=== PATIENT | male | born 1980 | race Caucasian/White ===

== ENCOUNTER 2018-09-10 12:37 | Emergency (ER) | payer MEDICARE, MEDICAID, SELFPAY ==
[2018-09-10 12:55] VITALS: BP 124/85; PULSE 85; RESP 16; TEMP 37.1; O2SAT 100; BMI 25.7
--- NOTE | 2018-09-10 13:10 | ED_ITS ---
HPI - Psych <Vanita Reyes DO - Last Filed: 09/11/18 07:06> General Chief Complaint: Psychiatric Symptoms Stated Complaint: MIRLANDE Time Seen by Provider: 09/10/18 12:49 Source: patient, family and police Mode of arrival: ambulatory History of Present Illness HPI Narrative: Patient is a 37-year-old male who has history of schizophrenia brought in by police after a violent outburst in [facility]. He apparently was admitted and treated at [facility] for 1 week. His according to his mom he has not been taking his medications and drinking alcohol. She has already texted his out patient [facility] provider was actually here in the emergency department. He does know him well. Patient adamantly denies any suicidal or homicidal ideations. He does say that he was hearing a voice of a child having sex while in the back of the police car. Related Data Home Medications Medication Instructions Recorded Confirmed benztropine 09/10/18 09/10/18 divalproex 09/10/18 09/10/18 haloperidol 09/10/18 09/10/18 Allergies Allergy/AdvReac Type Severity Reaction Status Date / Time No Known Drug Allergies Allergy Verified 09/10/18 13:53 Review of Systems <DO Arleth Sharma Last Filed: 09/11/18 07:06> Review of Systems GENERAL: Denies chills,fever HEENT: Denies throat pain RESPIRATORY: Denies dyspnea, cough, wheezing CARDIOVASCULAR: Denies chest pain, palpitations GASTROINTESTINAL: Denies nausea, vomiting MUSCULOSKELETAL: Denies extremity pain, injury SKIN: No rash, no laceration, no pruritus NEUROLOGIC: Denies weakness, dizziness, headache, numbness PSYCH: See HPI 8 point review of systems is negative except for those stated above and HPI Exam <Vanita Reyes DO - Last Filed: 09/11/18 07:06> Initial Vital Signs Initial Vital Signs: Vital Signs Temperature 98.7 F 09/10/18 12:55 Pulse Rate 85 09/10/18 12:55 Respiratory Rate 16 09/10/18 12:55 Blood Pressure 124/85 09/10/18 12:55 Pulse Oximetry 100 09/10/18 12:55 GENERAL: Alert and oriented cooperative HEENT: Head atraumatic,EOMI, pupils reactive CARDIOVASCULAR: Regular rate and rhythm without murmurs, rubs or gallops. RESPIRATORY: Breath sounds equal bilaterally, no wheezes rales or rhonchi. EXTREMITIES: Normal range of motion, no clubbing or edema. Neurovascularly intact NEUROLOGICAL: Alert and oriented x4.Normal gait and speech. SKIN: Warm, dry, no laceration, no petechiae, no rashes or lesions. <Navya Noe MD - Last Filed: 09/11/18 02:37> Initial Vital Signs Initial Vital Signs: Vital Signs Temperature 98.7 F 09/10/18 12:55 Pulse Rate 85 09/10/18 12:55 Respiratory Rate 16 09/10/18 12:55 Blood Pressure 124/85 09/10/18 12:55 Pulse Oximetry 100 09/10/18 12:55 Course <Vanita Reyes DO - Last Filed: 09/11/18 07:06> Orders Ordered: Discontinued Medications Haloperidol (Haldol) 5 mg IM NOW ONE Stop: 09/10/18 15:26 Last Admin: 09/10/18 15:37 Dose: Olanzapine (Zyprexa) 10 mg IM NOW ONE Stop: 09/10/18 15:28 Last Admin: 09/10/18 16:05 Dose: 10 mg Vital Signs - 8 hr 09/10/18 19:25 09/10/18 21:37 Pulse Rate 79 63 Respiratory Rate 15 12 Blood Pressure 129/68 Blood Pressure [Left Arm] 123/70 Pulse Oximetry 99 100 Mental Status Exam Patient Appearance: Well Groomed Level of Consciousness: Alert and Awake Mood Description: Angry and Anxious Ability to Follow Directions: Fair Hallucination Type: Auditory Physical Status Respirations: Unlabored Circulation: Moves all extremities Assessment of Situation Behavior necessitating restraint: Agitated Restraint risks explained to patient: Yes Comments Additional Comments: Patient screaming and yelling. He does not appear to be throwing things but does have quite violent outburst. <Navya Noe MD - Last Filed: 09/11/18 02:37> Orders Ordered: Discontinued Medications Haloperidol (Haldol) 5 mg IM NOW ONE Stop: 09/10/18 15:26 Last Admin: 09/10/18 15:37 Dose: Olanzapine (Zyprexa) 10 mg IM NOW ONE Stop: 09/10/18 15:28 Last Admin: 09/10/18 16:05 Dose: 10 mg Vital Signs - 8 hr 09/10/18 19:25 09/10/18 21:37 Pulse Rate 79 63 Respiratory Rate 15 12 Blood Pressure 129/68 Blood Pressure [Left Arm] 123/70 Pulse Oximetry 99 100 MDM - Psych <Vanita Reyes DO - Last Filed: 09/11/18 07:06> Lab Data Attestation: I reviewed the patient's lab results. Result diagrams: 09/10/18 13:30 09/10/18 13:30 Lab Results 09/10/18 09/10/18 09/10/18 Range/Units 12:50 12:50 13:30 WBC 7.9 (4.5-11.0) X10^3/uL RBC 5.01 (4.5-5.9) X10^6/uL Hgb 15.5 (13.5-17.5) g/dL Hct 44.8 (41-53) % MCV 89.4 (80-100) fL MCH 30.9 (26-34) PG MCHC 34.6 (30-36) % RDW 14.3 (11.6-14.8) % Plt Count 158 (150-400) X10^3/uL Neut % (Auto) 68.7 (50-75) % Lymph % (Auto) 19.6 L (25-40) % [place] % (Auto) 8.4 (3-14) % Eos % (Auto) 1.3 L (2-4) % Baso % (Auto) 2.0 (0-2) % Neut # (Auto) 5500 (1610-2175) /uL Sodium (137-145) mmol/L Potassium (3.4-5.1) mmol/L Chloride (98-107) mmol/L Carbon Dioxide (22-32) mmol/L BUN (9-20) mg/dL Creatinine (0.66-1.25) mg/dL Estimated GFR (>60) mL/min BUN/Creatinine Ratio (6-22) Glucose (70-100) mg/dL Calcium (8.4-10.2) mg/dL Total Bilirubin (0.2-1.3) mg/dL AST (17-59) IU/L ALT (21-72) IU/L Alkaline Phosphatase (38-126) U/L Total Protein (6.3-8.2) g/dL Albumin (3.5-5.0) g/dL Globulin (1.7-4.1) g/dL Albumin/Globulin Ratio (1.0-2.8) TSH (0.47-4.68) uIU/mL Urine Color Yellow Urine Appearance Clear Urine pH 6.5 (4.5-8.0) Ur Specific [place] <=1.005 (1.000-1.035) Urine Protein Negative (Negative) Urine Glucose (UA) Negative (Normal) g/dL Urine Ketones Negative (NEGATIVE) Urine Occult Blood Trace-lysed (Negative) Urine Nitrate Negative (Negative) Urine Bilirubin Negative (NEGATIVE) Urine Urobilinogen 0.2 (0.2) E.U./dL Ur Leukocyte Esterase Negative (NEGATIVE) Urine Opiates Screen Negative (Negative) Ur Oxycodone Screen Negative (Negative) Urine Methadone Screen Negative (Negative) Ur Barbiturates Screen Negative (Negative) U Tricyclic Antidepress Negative (Negative) Ur Phencyclidine Scrn Negative (Negative) Ur Amphetamines Screen Negative (Negative) U Methamphetamines Scrn Negative (Negative) Ur MDMA Scrn (Ecstasy) Negative (Negative) U Benzodiazepines Scrn Negative (Negative) Urine Cocaine Screen Negative (Negative) U Marijuana (THC) Screen Negative (Negative) Ethyl Alcohol mg/dL 09/10/18 09/10/18 Range/Units 13:30 13:30 WBC (4.5-11.0) X10^3/uL RBC (4.5-5.9) X10^6/uL Hgb (13.5-17.5) g/dL Hct (41-53) % MCV (80-100) fL MCH (26-34) PG MCHC (30-36) % RDW (11.6-14.8) % Plt Count (150-400) X10^3/uL Neut % (Auto) (50-75) % Lymph % (Auto) (25-40) % [place] % (Auto) (3-14) % Eos % (Auto) (2-4) % Baso % (Auto) (0-2) % Neut # (Auto) (0414-1075) /uL Sodium 135 L (137-145) mmol/L Potassium 4.5 (3.4-5.1) mmol/L Chloride 95 L (98-107) mmol/L Carbon Dioxide 28 (22-32) mmol/L BUN 6 L (9-20) mg/dL Creatinine 0.70 (0.66-1.25) mg/dL Estimated GFR > 60.0 (>60) mL/min BUN/Creatinine Ratio 8.6 (6-22) Glucose 102 H (70-100) mg/dL Calcium 9.3 (8.4-10.2) mg/dL Total Bilirubin 0.7 (0.2-1.3) mg/dL AST 34 (17-59) IU/L ALT 45 (21-72) IU/L Alkaline Phosphatase 63 (38-126) U/L Total Protein 7.7 (6.3-8.2) g/dL Albumin 4.8 (3.5-5.0) g/dL Globulin 2.9 (1.7-4.1) g/dL Albumin/Globulin Ratio 1.7 (1.0-2.8) TSH 4.03 (0.47-4.68) uIU/mL Urine Color Urine Appearance Urine pH (4.5-8.0) Ur Specific [place] (1.000-1.035) Urine Protein (Negative) Urine Glucose (UA) (Normal) g/dL Urine Ketones (NEGATIVE) Urine Occult Blood (Negative) Urine Nitrate (Negative) Urine Bilirubin (NEGATIVE) Urine Urobilinogen (0.2) E.U./dL Ur Leukocyte Esterase (NEGATIVE) Urine Opiates Screen (Negative) Ur Oxycodone Screen (Negative) Urine Methadone Screen (Negative) Ur Barbiturates Screen (Negative) U Tricyclic Antidepress (Negative) Ur Phencyclidine Scrn (Negative) Ur Amphetamines Screen (Negative) U Methamphetamines Scrn (Negative) Ur MDMA Scrn (Ecstasy) (Negative) U Benzodiazepines Scrn (Negative) Urine Cocaine Screen (Negative) U Marijuana (THC) Screen (Negative) Ethyl Alcohol < 10 mg/dL MDM Narrative Medical decision making narrative: I called and spoke with patient's mom. She has contacted patient's own [facility] out reach his person. He is actually in the ED to evaluate patient. Initially thought patient did not meet involuntary criteria and he was not willing to go to hospital. However over time patient escalated. This was seen by the [facility] provider. It was determined the patient is now involuntary. He is seen in the room screaming yelling and and having quite angry outbursts. He is not violent towards others. However because of his angry outbursts he is placed in restraints. He was agreeable to medication. [facility] here to evaluate patient. Looking at beds currently. Patient signed out to Dr. Noe for further treatment if needed but likely a going to psych facility <Navya Noe MD - Last Filed: 09/11/18 02:37> Medical Records Attestation: I reviewed the patient's medical records. Lab Data Attestation: I reviewed the patient's lab results. Lab Results 09/10/18 09/10/18 09/10/18 Range/Units 12:50 12:50 13:30 WBC 7.9 (4.5-11.0) X10^3/uL RBC 5.01 (4.5-5.9) X10^6/uL Hgb 15.5 (13.5-17.5) g/dL Hct 44.8 (41-53) % MCV 89.4 (80-100) fL MCH 30.9 (26-34) PG MCHC 34.6 (30-36) % RDW 14.3 (11.6-14.8) % Plt Count 158 (150-400) X10^3/uL Neut % (Auto) 68.7 (50-75) % Lymph % (Auto) 19.6 L (25-40) % [place] % (Auto) 8.4 (3-14) % Eos % (Auto) 1.3 L (2-4) % Baso % (Auto) 2.0 (0-2) % Neut # (Auto) 5500 (3289-7927) /uL Sodium (137-145) mmol/L Potassium (3.4-5.1) mmol/L Chloride (98-107) mmol/L Carbon Dioxide (22-32) mmol/L BUN (9-20) mg/dL Creatinine (0.66-1.25) mg/dL Estimated GFR (>60) mL/min BUN/Creatinine Ratio (6-22) Glucose (70-100) mg/dL Calcium (8.4-10.2) mg/dL Total Bilirubin (0.2-1.3) mg/dL AST (17-59) IU/L ALT (21-72) IU/L Alkaline Phosphatase (38-126) U/L Total Protein (6.3-8.2) g/dL Albumin (3.5-5.0) g/dL Globulin (1.7-4.1) g/dL Albumin/Globulin Ratio (1.0-2.8) TSH (0.47-4.68) uIU/mL Urine Color Yellow Urine Appearance Clear Urine pH 6.5 (4.5-8.0) Ur Specific [place] <=1.005 (1.000-1.035) Urine Protein Negative (Negative) Urine Glucose (UA) Negative (Normal) g/dL Urine Ketones Negative (NEGATIVE) Urine Occult Blood Trace-lysed (Negative) Urine Nitrate Negative (Negative) Urine Bilirubin Negative (NEGATIVE) Urine Urobilinogen 0.2 (0.2) E.U./dL Ur Leukocyte Esterase Negative (NEGATIVE) Urine Opiates Screen Negative (Negative) Ur Oxycodone Screen Negative (Negative) Urine Methadone Screen Negative (Negative) Ur Barbiturates Screen Negative (Negative) U Tricyclic Antidepress Negative (Negative) Ur Phencyclidine Scrn Negative (Negative) Ur Amphetamines Screen Negative (Negative) U Methamphetamines Scrn Negative (Negative) Ur MDMA Scrn (Ecstasy) Negative (Negative) U Benzodiazepines Scrn Negative (Negative) Urine Cocaine Screen Negative (Negative) U Marijuana (THC) Screen Negative (Negative) Ethyl Alcohol mg/dL 09/10/18 09/10/18 Range/Units 13:30 13:30 WBC (4.5-11.0) X10^3/uL RBC (4.5-5.9) X10^6/uL Hgb (13.5-17.5) g/dL Hct (41-53) % MCV (80-100) fL MCH (26-34) PG MCHC (30-36) % RDW (11.6-14.8) % Plt Count (150-400) X10^3/uL Neut % (Auto) (50-75) % Lymph % (Auto) (25-40) % [place] % (Auto) (3-14) % Eos % (Auto) (2-4) % Baso % (Auto) (0-2) % Neut # (Auto) (3208-0149) /uL Sodium 135 L (137-145) mmol/L Potassium 4.5 (3.4-5.1) mmol/L Chloride 95 L (98-107) mmol/L Carbon Dioxide 28 (22-32) mmol/L BUN 6 L (9-20) mg/dL Creatinine 0.70 (0.66-1.25) mg/dL Estimated GFR > 60.0 (>60) mL/min BUN/Creatinine Ratio 8.6 (6-22) Glucose 102 H (70-100) mg/dL Calcium 9.3 (8.4-10.2) mg/dL Total Bilirubin 0.7 (0.2-1.3) mg/dL AST 34 (17-59) IU/L ALT 45 (21-72) IU/L Alkaline Phosphatase 63 (38-126) U/L Total Protein 7.7 (6.3-8.2) g/dL Albumin 4.8 (3.5-5.0) g/dL Globulin 2.9 (1.7-4.1) g/dL Albumin/Globulin Ratio 1.7 (1.0-2.8) TSH 4.03 (0.47-4.68) uIU/mL Urine Color Urine Appearance Urine pH (4.5-8.0) Ur Specific [place] (1.000-1.035) Urine Protein (Negative) Urine Glucose (UA) (Normal) g/dL Urine Ketones (NEGATIVE) Urine Occult Blood (Negative) Urine Nitrate (Negative) Urine Bilirubin (NEGATIVE) Urine Urobilinogen (0.2) E.U./dL Ur Leukocyte Esterase (NEGATIVE) Urine Opiates Screen (Negative) Ur Oxycodone Screen (Negative) Urine Methadone Screen (Negative) Ur Barbiturates Screen (Negative) U Tricyclic Antidepress (Negative) Ur Phencyclidine Scrn (Negative) Ur Amphetamines Screen (Negative) U Methamphetamines Scrn (Negative) Ur MDMA Scrn (Ecstasy) (Negative) U Benzodiazepines Scrn (Negative) Urine Cocaine Screen (Negative) U Marijuana (THC) Screen (Negative) Ethyl Alcohol < 10 mg/dL MDM Narrative Medical decision making narrative: [place] note: Patient was signed out to me by Dr. Reyes pending final mental health disposition and potential transfer to psychiatric facility. Mental health clinician did report the patient was accepted in transfer to [facility]. He was transferred via ambulance with no further incident in the emergency department. Discharge Plan Departure Patient Disposition: Xfer Psychiatric Hosp Clinical Impression: Acute psychosis Discharge Date/Time: 09/10/18 21:39 Interventions: ED Discharge Assessment Last Done: 09/10/18 21:37
[2018-09-10 13:38] LABS: Urine Amphetamines Negative (Negative); Urine Barbiturates Negative (Negative); Urine Benzodiazepines Negative (Negative); Urine Cocaine Negative (Negative); Urine MDMA Negative (Negative); Urine Methadone Negative (Negative); Urine Methamphetamines Negative (Negative); Urine Morphine/Opi cutoff 2000 Negative (Negative); Urine Oxycodone Negative (Negative); Urine Phencyclidine Negative (Negative); Urine Tetrahydrocannabinol Negative (Negative); Urine Tricyclic Antidepressant Negative (Negative)
[2018-09-10 13:41] LABS: Add Manual Diff / Slide Review NO; Eosinophils Percent Auto 1.3 % (2-4); Hematocrit 44.8 % (41-53); Hemoglobin 15.5 g/dL (13.5-17.5); Lymphocytes Percent Auto 19.6 % (25-40); Mean Corpuscular HGB Conc 34.6 % (30-36); Mean Corpuscular Hemoglobin 30.9 PG (26-34); Mean Corpuscular Volume 89.4 fL (80-100); Monocytes Percent Auto 8.4 % (3-14); Neutrophils Absolute Auto 5500 /uL (3000-5900); Neutrophils Percent Auto 68.7 % (50-75); Platelet Count 158 X10^3/uL (150-400); Red Blood Cell Count 5.01 X10^6/uL (4.5-5.9); Red Cell Distribution Width 14.3 % (11.6-14.8); White Blood Cell Count 7.9 X10^3/uL (4.5-11.0)
--- NOTE | 2018-09-10 13:50 | PC.NURSE ---
Patient asked for my counselor that was just here, Jsohua. I let him know I would ask if Joshua could come back to answer some questions. Nurse is aware, I could not find Joshua.
--- NOTE | 2018-09-10 13:53 | PC.NURSE ---
pt has been yelling, saying fuck that shit, currently talking to himself. Sounds angry and upset
[2018-09-10 13:59] LABS: Alanine Aminotransferase 45 IU/L (21-72); Albumin 4.8 g/dL (3.5-5.0); Albumin Globulin Ratio 1.7 (1.0-2.8); Alkaline Phosphatase 63 U/L (38-126); Aspartate Aminotransferase 34 IU/L (17-59); BUN Creatinine Ratio 8.6 (6-22); Bilirubin Total 0.7 mg/dL (0.2-1.3); Blood Urea Nitrogen 6 mg/dL (9-20); Calcium 9.3 mg/dL (8.4-10.2); Carbon Dioxide 28 mmol/L (22-32); Chloride 95 mmol/L (98-107); Estimated Glomerular Filt Rate > 60.0 mL/min (>60); Ethanol (ETOH) < 10 mg/dL; Globulin 2.9 g/dL (1.7-4.1); Glucose 102 mg/dL (70-100); HEMOLYSIS 17 (0-50); Potassium 4.5 mmol/L (3.4-5.1); Sodium 135 mmol/L (137-145); Total Protein 7.7 g/dL (6.3-8.2)
--- NOTE | 2018-09-10 14:14 | PC.NURSE ---
Pt states he is hearing voices. Pacing around room screaming.
--- NOTE | 2018-09-10 14:42 | PC.NURSE ---
pt pacing around room yelling I hate my life, ALWAYS
[2018-09-10 14:45] LABS: Thyroid Stimulating Hormone 4.03 uIU/mL (0.47-4.68)
--- NOTE | 2018-09-10 15:21 | PC.NURSE ---
Pt screaming at nurse, open the door! I've been here for fucking hours. Pt banging on door, screaming at staff. Asked patient to lower his voice. He continues to scream and bang on the door. Provider notified.
--- NOTE | 2018-09-10 15:23 | PC.NURSE ---
pt is banging on the door screaming fuck you at the staff repeatedly
--- NOTE | 2018-09-10 15:26 | PC.NURSE ---
Pt banging on the door, yelling at staff sayingopen the door repeatedly 1530 pt requesting food, pacing back and forth at door 1533 pt banging on door again, pt took off medical gown, still banging on door, pointing across the room as if pt is seeing someone 1545 pt in bathroom with door shut, staff going to try to get him out 1550 [employer] arrived to assist staff due to pts behavior 1558 pt laying on bed eating sandwich, seems calmer
[2018-09-10] MEDS: OLANZapine 10 MG VIAL IM (16:05)
[2018-09-10 16:28] LABS: Appearance Urine UA CLEAR; Bilirubin Urine UA NEGATIVE (NEGATIVE); Color Urine UA YELLOW; Glucose Urine UA NEGATIVE (Normal); Ketones Urine UA NEGATIVE (NEGATIVE); Leukocyte Esterase Urine UA NEGATIVE (NEGATIVE); Nitrite Urine UA NEGATIVE (Negative); Occult Blood Urine UA TRACE-LYSED (Negative); Protein Urine UA NEGATIVE (Negative); Specific Gravity Urine UA <=1.005 (1.000-1.035); Urobilinogen Urine UA 0.2 E.U./dL (0.2); pH Urine UA 6.5 (4.5-8.0)
--- NOTE | 2018-09-10 16:50 | PC.NURSE ---
Pt has stopped yelling. Requesting for us to open door. Agrees to not attempt to leave or yell. Door is opened with security control room officer standing by. Patient is cooperative and laying on stretcher. States he is feeling a little better.
--- NOTE | 2018-09-10 16:56 | PC.NURSE ---
Patient now resting on bed with blankets.
[2018-09-10 17:14] VITALS: BP 117/67; PULSE 71; RESP 18; O2SAT 99
[2018-09-10 19:25] VITALS: BP 123/70; PULSE 79; RESP 15; O2SAT 99
[2018-09-10 21:37] VITALS: BP 129/68; PULSE 63; RESP 12; O2SAT 100
[2018-09-13 10:23] LABS: Valproic Acid (Depakene) Total < 12.5 mg/L (50.0-100.0)
== END 2018-09-10 21:39 ==
PROVIDERS: Emergency Medicine; Emergency Provider Emergency Medicine
DX: F23 Brief psychotic disorder (principal)
CPT/HCPCS: 80053; 80164; 80305; 80320; 81003; 84443; 85025; 96372; 99283; 99284; S0166

== ENCOUNTER 2019-04-23 18:19 | Emergency (ER) | payer MEDICARE, SELFPAY ==
[2019-04-23 18:20] VITALS: BP 122/70; PULSE 91; RESP 18; TEMP 36.7; O2SAT 99
--- NOTE | 2019-04-23 19:03 | ED_ITS ---
HPI - Psych General Chief Complaint: Psychiatric Symptoms Stated Complaint: HATE Time Seen by Provider: 04/23/19 18:49 Source: patient Mode of arrival: ambulatory Limitations: no limitations History of Present Illness HPI Narrative: 38-year-old male who comes the emergency department under his own recognizance for evaluation because he states that he has a ?medical problem ?he states that he feels like the food that he has been eating and other substances that he has been exposed to her ?poison? he denies any specific symptoms. Somewhat difficult to obtain a history from the patient due to his tangential answers to questions. Related Data Home Medications Medication Instructions Recorded Confirmed benztropine 09/10/18 09/10/18 divalproex 09/10/18 09/10/18 haloperidol 09/10/18 09/10/18 Allergies Allergy/AdvReac Type Severity Reaction Status Date / Time No Known Drug Allergies Allergy Verified 09/10/18 13:53 Review of Systems Constitutional Denies fever(s) and Denies headache(s) ENT Ears, Nose, Mouth, and Throat: Denies headache(s) Cardiovascular Denies chest pain and Denies dyspnea Respiratory Denies dyspnea Gastrointestinal Gastrointestinal: Denies abdominal pain Musculoskeletal Denies myalgias and Denies arthralgias Integumentary/Breasts Denies rash Neurologic Denies headache(s) Psychiatric Denies auditory hallucinations, Denies visual hallucinations, Denies hallucinations, Denies homicidal ideation and Denies suicidal ideation Hematologic/Lymphatic Denies easy bleeding and Denies easy bruising PFSH Medical History Schizophrenia (Acute) Social History Smoking Status: Current every day smoker alcohol intake: current Social History Smoking Status: Current every day smoker alcohol intake: current Exam Initial Vital Signs Initial Vital Signs: Vital Signs Temperature 98.1 F 04/23/19 18:20 Pulse Rate 91 H 04/23/19 18:20 Respiratory Rate 18 04/23/19 18:20 Blood Pressure 122/70 04/23/19 18:20 Pulse Oximetry 99 04/23/19 18:20 Const General: comfortable, well developed, well groomed and No acute distress Orientation: alert, awake, oriented x3, oriented to person, oriented to place and oriented to time Limitations: mental status not altered HENMT Head: normal to inspection and normocephalic Resp Effort & Inspection: normal respiratory effort Auscultation: clear to auscultation bilaterally Cardio Rate: regular rate Rhythm: regular rhythm GI Inspection: non-distended Palpation: soft Skin Lesions: no lesions Rashes: no rashes Neuro General: alert, awake and oriented x3 Speech: other (Pressured speech) Gait: normal gait Motor: muscle tone normal throughout Sensory Exam: no sensory deficits noted Extrem General: normal to inspection and capillary refill normal Psych Appearance: disheveled (Somewhat does show hold) Speech and Movement: agitated, pressured speech, restless and speech not slurred Mood: irritable mood Affect: animated Attitude: cooperative Thought Process: confabulating, flight of ideas and tangential Thought Content: no hallucinations, no homicidality and suicidality Judgment: fair Course Orders Ordered: ED Orders 04/23/19 20:05 Acetaminophen Stat Complete Blood Count AUTO DIFF Stat Comprehensive Metabolic Panel Stat Ethanol (ETOH) Stat Lipase Stat Salicylate Stat 04/23/19 20:18 Urine Drug Screen, Rapid Stat Vital Signs - 8 hr 04/23/19 18:20 Temperature 98.1 F Pulse Rate 91 H Respiratory Rate 18 Blood Pressure 122/70 Pulse Oximetry 99 MDM - Psych Medical Records Attestation: I reviewed the patient's medical records. Lab Data Attestation: I reviewed the patient's lab results. Result diagrams: 04/23/19 20:05 04/23/19 20:05 Lab Results 04/23/19 04/23/19 04/23/19 Range/Units 20:05 20:05 20:05 WBC 6.0 (4.5-11.0) X10^3/uL RBC 4.48 L (4.5-5.9) X10^6/uL Hgb 13.9 (13.5-17.5) g/dL Hct 40.6 L (41-53) % MCV 90.7 (80-100) fL MCH 31.1 (26-34) PG MCHC 34.3 (30-36) % RDW 13.4 (11.6-14.8) % Plt Count 168 (150-400) X10^3/uL Neut % (Auto) 59.4 (50-75) % Lymph % (Auto) 25.7 (25-40) % [place] % (Auto) 10.1 (3-14) % Eos % (Auto) 3.3 (2-4) % Baso % (Auto) 1.5 (0-2) % Neut # (Auto) 3600 (7044-1057) /uL Lymph # (Auto) 1600 (1965-4500) /uL [place] # (Auto) 600 (0-900) /uL Eos # (Auto) 200 (0-450) /uL Baso # (Auto) 100 (0-100) /uL Sodium 143 (137-145) mmol/L Potassium 4.0 (3.4-5.1) mmol/L Chloride 108 H (98-107) mmol/L Carbon Dioxide 27 (22-32) mmol/L BUN 21 H (9-20) mg/dL Creatinine 0.70 (0.66-1.25) mg/dL Estimated GFR > 60.0 (>60) mL/min BUN/Creatinine Ratio 30.0 H (6-22) Glucose 82 (70-100) mg/dL Calcium 9.2 (8.4-10.2) mg/dL Total Bilirubin 0.6 (0.2-1.3) mg/dL AST 19 (17-59) IU/L ALT 19 L (21-72) IU/L Alkaline Phosphatase 79 (38-126) U/L Total Protein 6.8 (6.3-8.2) g/dL Albumin 4.1 (3.5-5.0) g/dL Globulin 2.7 (1.7-4.1) g/dL Albumin/Globulin Ratio 1.5 (1.0-2.8) Lipase 133 (23-300) U/L Salicylates < 1.0 (<20) mg/dL Urine Opiates Screen (Negative) Ur Oxycodone Screen (Negative) Urine Methadone Screen (Negative) Acetaminophen < 10 L (10-30) ug/mL Ur Barbiturates Screen (Negative) U Tricyclic Antidepress (Negative) Ur Phencyclidine Scrn (Negative) Ur Amphetamines Screen (Negative) U Methamphetamines Scrn (Negative) Ur MDMA Scrn (Ecstasy) (Negative) U Benzodiazepines Scrn (Negative) Urine Cocaine Screen (Negative) U Marijuana (THC) Screen (Negative) Ethyl Alcohol < 10 mg/dL 04/23/19 Range/Units 20:18 WBC (4.5-11.0) X10^3/uL RBC (4.5-5.9) X10^6/uL Hgb (13.5-17.5) g/dL Hct (41-53) % MCV (80-100) fL MCH (26-34) PG MCHC (30-36) % RDW (11.6-14.8) % Plt Count (150-400) X10^3/uL Neut % (Auto) (50-75) % Lymph % (Auto) (25-40) % [place] % (Auto) (3-14) % Eos % (Auto) (2-4) % Baso % (Auto) (0-2) % Neut # (Auto) (5972-3471) /uL Lymph # (Auto) (0582-4730) /uL [place] # (Auto) (0-900) /uL Eos # (Auto) (0-450) /uL Baso # (Auto) (0-100) /uL Sodium (137-145) mmol/L Potassium (3.4-5.1) mmol/L Chloride (98-107) mmol/L Carbon Dioxide (22-32) mmol/L BUN (9-20) mg/dL Creatinine (0.66-1.25) mg/dL Estimated GFR (>60) mL/min BUN/Creatinine Ratio (6-22) Glucose (70-100) mg/dL Calcium (8.4-10.2) mg/dL Total Bilirubin (0.2-1.3) mg/dL AST (17-59) IU/L ALT (21-72) IU/L Alkaline Phosphatase (38-126) U/L Total Protein (6.3-8.2) g/dL Albumin (3.5-5.0) g/dL Globulin (1.7-4.1) g/dL Albumin/Globulin Ratio (1.0-2.8) Lipase (23-300) U/L Salicylates (<20) mg/dL Urine Opiates Screen Negative (Negative) Ur Oxycodone Screen Negative (Negative) Urine Methadone Screen Negative (Negative) Acetaminophen (10-30) ug/mL Ur Barbiturates Screen Negative (Negative) U Tricyclic Antidepress Negative (Negative) Ur Phencyclidine Scrn Negative (Negative) Ur Amphetamines Screen Negative (Negative) U Methamphetamines Scrn Negative (Negative) Ur MDMA Scrn (Ecstasy) Negative (Negative) U Benzodiazepines Scrn Negative (Negative) Urine Cocaine Screen Negative (Negative) U Marijuana (THC) Screen Negative (Negative) Ethyl Alcohol mg/dL MDM Narrative Medical decision making narrative: Somewhat difficult to obtain a history from the patient given his flight of ideas. He made multiple references to drinking substances that have poison in them. He may references to nursing staff about the government and other paranoia type statements. He was alert and oriented x3. He was somewhat disheveled however I do not feel that he was gravely disabled given his presentation. He made multiple statements that he did not want to be in the hospital. Multiple times stated that he did not want to hurt himself or others. He stated that he just wanted to get checked out to make sure there was not a ?medical problem ?he stated that he was not taking any medication because he did not need any medication. Off the medicines here in the emergency department he became somewhat agitated stating that he was offended that I thought that he needed medications. He stated he is no longer seeing a mental health provider. Patient did agree to have blood drawn although he stated that he wanted his results to say ?confidential ?I told him that we would not discuss his lab results with anyone. It shows no signs of toxic ingestions. Patient stated that he did not want to stay in the emergency department any longer. I feel that he is having hallucinations despite his denial of this however is not overtly psychotic. Unfortunately I feel that he would not meet criteria for an involuntary admission due to lack of grave disability and the lack of overt suicidal or homicidal comments or thoughts. I do feel like he would benefit from antipsychotic medication however he refused multiple times and again became somewhat agitated when I asked him about this. I informed her that he could return to the emergency department at any point if he would like. Discharge Plan Departure Patient Disposition: Home Clinical Impression: Adjustment disorder Qualifiers: Adjustment disorder type: unspecified type Qualified Code(s): F43.20 - Adjustment disorder, unspecified Discharge Date/Time: 04/23/19 20:44 Interventions: ED Discharge Assessment Last Done: 04/23/19 20:44 Instructions: DI for Adjustment Disorder Activity Restrictions/Additional Instructions: You can contact the health human resources trainer at [phone] here at the hospital to establish a primary provider. I highly encouraged you to do this. Also highly encourage you to contact the [facility] for continued treatment. You can return to the emergency department for any new or worsening symptoms Prescriptions: No Action haloperidol 5 mg tablet RF: 0 divalproex 500 mg tablet,delayed release (DR/EC) RF: 0 benztropine 1 mg tablet RF: 0
[2019-04-23 20:15] LABS: Add Manual Diff / Slide Review NO; Basophils Absolute Auto 100 /uL (0-100); Basophils Percent Auto 1.5 % (0-2); Eosinophils Absolute Auto 200 /uL (0-450); Eosinophils Percent Auto 3.3 % (2-4); Hematocrit 40.6 % (41-53); Hemoglobin 13.9 g/dL (13.5-17.5); Lymphocytes Absolute Auto 1600 /uL (1100-4500); Lymphocytes Percent Auto 25.7 % (25-40); Mean Corpuscular HGB Conc 34.3 % (30-36); Mean Corpuscular Hemoglobin 31.1 PG (26-34); Mean Corpuscular Volume 90.7 fL (80-100); Monocytes Absolute Auto 600 /uL (0-900); Monocytes Percent Auto 10.1 % (3-14); Neutrophils Absolute Auto 3600 /uL (1500-7000); Neutrophils Percent Auto 59.4 % (50-75); Platelet Count 168 X10^3/uL (150-400); Red Blood Cell Count 4.48 X10^6/uL (4.5-5.9); Red Cell Distribution Width 13.4 % (11.6-14.8)
[2019-04-23 20:26] LABS: Urine Amphetamines Negative (Negative); Urine Barbiturates Negative (Negative); Urine Benzodiazepines Negative (Negative); Urine Cocaine Negative (Negative); Urine MDMA Negative (Negative); Urine Methadone Negative (Negative); Urine Methamphetamines Negative (Negative); Urine Morphine/Opi cutoff 2000 Negative (Negative); Urine Oxycodone Negative (Negative); Urine Phencyclidine Negative (Negative); Urine Tetrahydrocannabinol Negative (Negative); Urine Tricyclic Antidepressant Negative (Negative)
[2019-04-23 20:28] LABS: Acetaminophen < 10 ug/mL (10-30); Alanine Aminotransferase 19 IU/L (21-72); Albumin 4.1 g/dL (3.5-5.0); Albumin Globulin Ratio 1.5 (1.0-2.8); Alkaline Phosphatase 79 U/L (38-126); Aspartate Aminotransferase 19 IU/L (17-59); Bilirubin Total 0.6 mg/dL (0.2-1.3); Blood Urea Nitrogen 21 mg/dL (9-20); Calcium 9.2 mg/dL (8.4-10.2); Carbon Dioxide 27 mmol/L (22-32); Chloride 108 mmol/L (98-107); Estimated Glomerular Filt Rate > 60.0 mL/min (>60); Ethanol (ETOH) < 10 mg/dL; Globulin 2.7 g/dL (1.7-4.1); Glucose 82 mg/dL (70-100); HEMOLYSIS 15 (0-50); Lipase 133 U/L (23-300); Salicylate < 1.0 mg/dL (<20); Sodium 143 mmol/L (137-145); Total Protein 6.8 g/dL (6.3-8.2)
== END 2019-04-23 20:44 | disposition home or self-care (01) ==
PROVIDERS: Emergency Provider Emergency Medicine
DX: F43.20 Adjustment disorder, unspecified (principal)
CPT/HCPCS: 36415; 80053; 80305; 80320; 80329; 83690; 85025; 99282; 99283; G0480

== ENCOUNTER 2019-04-25 00:56 | Emergency (ER) | payer MEDICARE, MEDICAID, SELFPAY ==
[2019-04-25 01:11] VITALS: BP 122/76; PULSE 72; RESP 20; TEMP 36.1; O2SAT 100
--- NOTE | 2019-04-25 01:45 | ED_ITS ---
HPI - Psych General Chief Complaint: Psychiatric Symptoms Stated Complaint: multiple complaints Time Seen by Provider: 04/25/19 01:07 Source: patient Mode of arrival: ambulatory Limitations: no limitations History of Present Illness HPI Narrative: 38-year-old male who I evaluated here in the emergency department a couple days ago where he admitted to having hallucinations however declined any mental health help. At that time is alert oriented x3 and I determined that he did have capacity to make decisions. Did not feel that he was gravely disabled. He was discharged. He returned again this evening for similar symptoms to his last visit. He stated that his ?bodily hygiene ?and his ?physical health ?were declining. He stated that he again was concerned about ?a special type of Listerine ?that was ?poison? he states that there were 3 large bottles of that on the shelf down at the market. He did once again admit to hearing voices. He stated that there were ?spirits? moving in and out of him. Makes multiple references to the Bible and how his name is in the Bible and now he is referenced in the Bible. Makes multiple references that he is being spied on. He will not elaborate as to who is doing this. Makes multiple references to hindu in the tattoo on his left forearm. He stated that he did not believe me that the last time he was here his blood work was unremarkable. He stated that the last time he was here he heard people yelling saying that they wanted to know what his blood work showed. He denies any alcohol or drug use. Related Data Home Medications Medication Instructions Recorded Confirmed benztropine 09/10/18 09/10/18 divalproex 09/10/18 09/10/18 haloperidol 09/10/18 09/10/18 Allergies Allergy/AdvReac Type Severity Reaction Status Date / Time No Known Drug Allergies Allergy Verified 09/10/18 13:53 Review of Systems Review of Systems Review of systems somewhat difficult given his mental condition Constitutional Denies headache(s) ENT Ears, Nose, Mouth, and Throat: Denies headache(s) Cardiovascular Denies chest pain and Denies dyspnea Respiratory Denies dyspnea Gastrointestinal Gastrointestinal: Denies abdominal pain Neurologic Denies headache(s) Psychiatric Comments: Patient denies any mental health symptoms [facility] Medical History Schizophrenia (Acute) Social History Smoking Status: Current every day smoker alcohol intake: current Social History Smoking Status: Current every day smoker alcohol intake: current Exam Initial Vital Signs Initial Vital Signs: Vital Signs Temperature 97 F L 04/25/19 01:11 Pulse Rate 72 04/25/19 01:11 Respiratory Rate 20 04/25/19 01:11 Blood Pressure 122/76 04/25/19 01:11 Pulse Oximetry 100 04/25/19 01:11 Const General: No cooperative (Uncooperative), healthy appearing, acute distress and disheveled (Strong body odor) Orientation: alert, awake, oriented to person, oriented to place and oriented to time HENMT Head: normal to inspection and normocephalic Resp Effort & Inspection: normal respiratory effort Cardio Rate: regular rate Skin Lesions: no lesions Rashes: no rashes Neuro General: alert, awake and oriented x3 Speech: other (Pressured speech) Motor: muscle tone normal throughout Extrem Other: No gross deformities Psych Appearance: disheveled (Strong body odor) Speech and Movement: agitated, pressured speech and restless Mood: anxious mood, manic mood and angry Affect: animated, hostile and irritable affect Attitude: belligerent, guarded and refuses to answer Thought Process: circumstantial, flight of ideas, illogical and tangential Thought Content: hallucinations auditory, no homicidality and suicidality Judgment: poor Course Orders Ordered: ED Orders 04/25/19 02:15 Urine Drug Screen, Rapid Stat 04/25/19 02:20 Acetaminophen Stat Complete Blood Count AUTO DIFF Stat Comprehensive Metabolic Panel Stat Ethanol (ETOH) Stat Salicylate Stat Thyroid Stimulating Hormone Stat 04/25/19 06:48 Consult to Loss Prevention Research Engineer Stat Discontinued Medications Lorazepam (Ativan) 1 mg PO NOW ONE Stop: 04/25/19 02:32 Last Admin: 04/25/19 02:32 Dose: 1 mg Vital Signs - 8 hr 04/25/19 01:11 04/25/19 04:23 Temperature 97 F L 97.9 F Pulse Rate 72 68 Respiratory Rate 20 20 Blood Pressure 122/76 Blood Pressure [Left Arm] 118/72 Pulse Oximetry 100 100 Mental Status Exam Patient Appearance: Disheveled, Bizarre and Inappropriate Level of Consciousness: Alert, Combative, Inappropriate and Restless Speech Pattern: Animated, Confabulation, Excited, Inappropriate, Perseverating and Pressured Mood Description: Angry, Euphoric, Hostile, Nervous and Suspicious Ability to Follow Directions: Poor Hallucination Type: Auditory Thought Process:: Disorganized, Confabulating and Illogical Physical Status Respirations: Normal respiratory rate Cardiac: Regular Rate Circulation: Moves all extremities Assessment of Situation Behavior necessitating restraint: Agitated Restraint risks explained to patient: No Restraint risks explained to family: No MDM - Psych Lab Data Attestation: I reviewed the patient's lab results. Result diagrams: 04/25/19 02:20 04/25/19 02:20 Lab Results 04/25/19 04/25/19 04/25/19 Range/Units 02:15 02:20 02:20 WBC 6.9 (4.5-11.0) X10^3/uL RBC 4.86 (4.5-5.9) X10^6/uL Hgb 15.1 (13.5-17.5) g/dL Hct 44.4 (41-53) % MCV 91.3 (80-100) fL MCH 31.1 (26-34) PG MCHC 34.0 (30-36) % RDW 13.3 (11.6-14.8) % Plt Count 182 (150-400) X10^3/uL Neut % (Auto) 64.7 (50-75) % Lymph % (Auto) 22.9 L (25-40) % Real % (Auto) 9.0 (3-14) % Eos % (Auto) 2.3 (2-4) % Baso % (Auto) 1.1 (0-2) % Neut # (Auto) 4500 (2124-7839) /uL Lymph # (Auto) 1600 (2398-8212) /uL Real # (Auto) 600 (0-900) /uL Eos # (Auto) 200 (0-450) /uL Baso # (Auto) 100 (0-100) /uL Sodium 142 (137-145) mmol/L Potassium 4.1 (3.4-5.1) mmol/L Chloride 105 (98-107) mmol/L Carbon Dioxide 25 (22-32) mmol/L BUN 27 H (9-20) mg/dL Creatinine 0.80 (0.66-1.25) mg/dL Estimated GFR > 60.0 (>60) mL/min BUN/Creatinine Ratio 33.8 H (6-22) Glucose 94 (70-100) mg/dL Calcium 9.7 (8.4-10.2) mg/dL Total Bilirubin 0.7 (0.2-1.3) mg/dL AST 24 (17-59) IU/L ALT 17 L (21-72) IU/L Alkaline Phosphatase 97 (38-126) U/L Total Protein 7.9 (6.3-8.2) g/dL Albumin 4.7 (3.5-5.0) g/dL Globulin 3.2 (1.7-4.1) g/dL Albumin/Globulin Ratio 1.5 (1.0-2.8) TSH (0.47-4.68) uIU/mL Salicylates (<20) mg/dL Urine Opiates Screen Negative (Negative) Ur Oxycodone Screen Negative (Negative) Urine Methadone Screen Negative (Negative) Acetaminophen (10-30) ug/mL Ur Barbiturates Screen Negative (Negative) U Tricyclic Antidepress Negative (Negative) Ur Phencyclidine Scrn Negative (Negative) Ur Amphetamines Screen Negative (Negative) U Methamphetamines Scrn Negative (Negative) Ur MDMA Scrn (Ecstasy) Negative (Negative) U Benzodiazepines Scrn Negative (Negative) Urine Cocaine Screen Negative (Negative) U Marijuana (THC) Screen Negative (Negative) Ethyl Alcohol < 10 mg/dL 04/25/19 04/25/19 Range/Units 02:20 02:20 WBC (4.5-11.0) X10^3/uL RBC (4.5-5.9) X10^6/uL Hgb (13.5-17.5) g/dL Hct (41-53) % MCV (80-100) fL MCH (26-34) PG MCHC (30-36) % RDW (11.6-14.8) % Plt Count (150-400) X10^3/uL Neut % (Auto) (50-75) % Lymph % (Auto) (25-40) % Real % (Auto) (3-14) % Eos % (Auto) (2-4) % Baso % (Auto) (0-2) % Neut # (Auto) (3124-6647) /uL Lymph # (Auto) (3942-3406) /uL Real # (Auto) (0-900) /uL Eos # (Auto) (0-450) /uL Baso # (Auto) (0-100) /uL Sodium (137-145) mmol/L Potassium (3.4-5.1) mmol/L Chloride (98-107) mmol/L Carbon Dioxide (22-32) mmol/L BUN (9-20) mg/dL Creatinine (0.66-1.25) mg/dL Estimated GFR (>60) mL/min BUN/Creatinine Ratio (6-22) Glucose (70-100) mg/dL Calcium (8.4-10.2) mg/dL Total Bilirubin (0.2-1.3) mg/dL AST (17-59) IU/L ALT (21-72) IU/L Alkaline Phosphatase (38-126) U/L Total Protein (6.3-8.2) g/dL Albumin (3.5-5.0) g/dL Globulin (1.7-4.1) g/dL Albumin/Globulin Ratio (1.0-2.8) TSH 3.47 (0.47-4.68) uIU/mL Salicylates < 1.0 (<20) mg/dL Urine Opiates Screen (Negative) Ur Oxycodone Screen (Negative) Urine Methadone Screen (Negative) Acetaminophen < 10 L (10-30) ug/mL Ur Barbiturates Screen (Negative) U Tricyclic Antidepress (Negative) Ur Phencyclidine Scrn (Negative) Ur Amphetamines Screen (Negative) U Methamphetamines Scrn (Negative) Ur MDMA Scrn (Ecstasy) (Negative) U Benzodiazepines Scrn (Negative) Urine Cocaine Screen (Negative) U Marijuana (THC) Screen (Negative) Ethyl Alcohol mg/dL MDM Narrative Medical decision making narrative: Patient with flight of ideas. Multiple references to hindu in psychology. Multiple references to his name being in the Bible. Patient became very agitated when I asked him if he felt like he n eeded admitted to the hospital. He stated multiple times that he needed admitted to the hospital for his hygiene and physical well being however did not feel like he needed admitted to the hospital for any mental illness. He stated multiple times that he did not have any mental illnesses. Stated he was very offended by me mentioning this to him. I feel that today he is worse than when he was a couple days ago when I saw him. I do not feel like he has the ability to make decisions. Stated multiple times that he did not want admitted to mental health provider. He states he did not want labs drawn today. He is concerned about spies finding out the results of his lab test. I did feel like we needed to obtain labs to medically clear him. We did contact the police because we anticipated the patient becoming very agitated. The police were well aware of this individual. They stated that for the past 2 days he has been causing problems around town mostly yelling. They were called to the local market because the patient was causing disturbances in the store. They were able to convince the patient to move into our seclusion room. He did eventually consent to having his blood drawn and obtaining urine. He has were unremarkable. They are unchanged from a couple days ago when the same labs were drawn. We were also able to convince him to take 1 mg of Ativan. Restraint orders were placed at 0245 a.m.. Patient was placed in a locked room. He has remained stable since then. He has been sleeping. DCR contacted for evaluation and involuntary admission evaluation. 0645: Patient to sleep in the room however I do feel that a continued restraint orders necessary given his presentation. This restraint order was renewed. DCR his involved. chemical research worker consult placed. Care turned over to day provider change of shift to follow up on disposition. Discharge Plan Departure Patient Disposition: Xfer Psychiatric Hosp Clinical Impression: Acute psychosis
[2019-04-25 02:28] LABS: Urine Amphetamines Negative (Negative); Urine Barbiturates Negative (Negative); Urine Benzodiazepines Negative (Negative); Urine Cocaine Negative (Negative); Urine MDMA Negative (Negative); Urine Methadone Negative (Negative); Urine Methamphetamines Negative (Negative); Urine Morphine/Opi cutoff 2000 Negative (Negative); Urine Oxycodone Negative (Negative); Urine Phencyclidine Negative (Negative); Urine Tetrahydrocannabinol Negative (Negative); Urine Tricyclic Antidepressant Negative (Negative)
[2019-04-25] MEDS: LORazepam 0.5 MG TABLET 1 MG PO (02:32)
[2019-04-25 02:33] LABS: Add Manual Diff / Slide Review NO; Basophils Absolute Auto 100 /uL (0-100); Basophils Percent Auto 1.1 % (0-2); Eosinophils Absolute Auto 200 /uL (0-450); Eosinophils Percent Auto 2.3 % (2-4); Hematocrit 44.4 % (41-53); Hemoglobin 15.1 g/dL (13.5-17.5); Lymphocytes Absolute Auto 1600 /uL (1100-4500); Lymphocytes Percent Auto 22.9 % (25-40); Mean Corpuscular Hemoglobin 31.1 PG (26-34); Mean Corpuscular Volume 91.3 fL (80-100); Monocytes Absolute Auto 600 /uL (0-900); Neutrophils Absolute Auto 4500 /uL (1500-7000); Neutrophils Percent Auto 64.7 % (50-75); Platelet Count 182 X10^3/uL (150-400); Red Blood Cell Count 4.86 X10^6/uL (4.5-5.9); Red Cell Distribution Width 13.3 % (11.6-14.8); White Blood Cell Count 6.9 X10^3/uL (4.5-11.0)
[2019-04-25 02:41] LABS: Acetaminophen < 10 ug/mL (10-30); Salicylate < 1.0 mg/dL (<20)
[2019-04-25 02:42] LABS: Alanine Aminotransferase 17 IU/L (21-72); Albumin 4.7 g/dL (3.5-5.0); Albumin Globulin Ratio 1.5 (1.0-2.8); Alkaline Phosphatase 97 U/L (38-126); Aspartate Aminotransferase 24 IU/L (17-59); BUN Creatinine Ratio 33.8 (6-22); Bilirubin Total 0.7 mg/dL (0.2-1.3); Blood Urea Nitrogen 27 mg/dL (9-20); Calcium 9.7 mg/dL (8.4-10.2); Carbon Dioxide 25 mmol/L (22-32); Chloride 105 mmol/L (98-107); Estimated Glomerular Filt Rate > 60.0 mL/min (>60); Ethanol (ETOH) < 10 mg/dL; Globulin 3.2 g/dL (1.7-4.1); Glucose 94 mg/dL (70-100); HEMOLYSIS < 15 (0-50); Potassium 4.1 mmol/L (3.4-5.1); Sodium 142 mmol/L (137-145); Total Protein 7.9 g/dL (6.3-8.2)
--- NOTE | 2019-04-25 02:53 | PC.NURSE ---
He was having visual and auditory hallucinations.he was very anxious and paranoid and refused blood draw for medicalclearance,after having Anjali. ,who had many contacts with him and a good relationship,he willing took po ativan to help him relax and he allowed blood and urine collection.DR Helm deemed him gravely disabled and seclusion was initiated.
--- NOTE | 2019-04-25 03:00 | PC.NURSE ---
He stated I see spiritual things passing through my heart.He statedI have scorpions in my body from beer.He makes frequent Quaker references to he Bible,Judism,and thoughts that he has been poisoned by things in his drinks.
[2019-04-25 03:14] LABS: Thyroid Stimulating Hormone 3.47 uIU/mL (0.47-4.68)
[2019-04-25 04:23] VITALS: BP 118/72; PULSE 68; RESP 20; TEMP 36.6; O2SAT 100
--- NOTE | 2019-04-25 04:54 | PC.NURSE ---
After po ativan given to help him relax and calm down,he was able to sleep.
--- NOTE | 2019-04-25 07:04 | PC.NURSE ---
DR. Helm made the decision to not remove his clothing and to allow him too have a recliner chair as to not escalate his behavior.He reamained calm and co-operative through the night.
[2019-04-25 07:45] VITALS: BP 92/58; PULSE 61; RESP 16; TEMP 36; O2SAT 100
[2019-04-25 10:15] VITALS: BP 108/64; PULSE 63; RESP 16; TEMP 36.1; O2SAT 98
--- NOTE | 2019-04-25 10:42 | PC.NURSE ---
pt was seen by ELIGIO Kitchen, pt is not detainable. Dr Noe aware. pt is cooperative. pt is not having a psychotic event at this time. he is very cooperative with staff. Pt cleaned up and brushed his teeth before he left. pt is [facility] [employer] [facility] to [facility]. denies any suicidal thoughts or harm to himself. pleasant. discharged pt in NAD,. vss,. staff member assisted pt to the main entrance to catch the bus.
== END 2019-04-25 10:47 | disposition home or self-care (01) ==
PROVIDERS: Emergency Medicine; Emergency Provider Emergency Medicine
DX: F23 Brief psychotic disorder (principal)
CPT/HCPCS: 80053; 80305; 80320; 80329; 84443; 85025; 99285; G0480